=== PATIENT | male | born 1990 | race Caucasian/White ===

== ENCOUNTER 2020-11-10 12:08 | Emergency (ER) | payer OTHER ==
[2020-11-10] MEDS ORDERED: TORAdol 30 mg Injection IM ONE (12:21)
[2020-11-10] MEDS ORDERED: BENADRYL 50 MG/ML IV ONE (12:22)
[2020-11-10] MEDS ORDERED: TORAdol 30 mg Injection ONE (12:27)
[2020-11-10] MEDS ORDERED: BENADRYL 50 MG/ML ONE (12:27)
[2020-11-10] MEDS ORDERED: TORAdol 30 mg Injection IV ONE (12:29)
[2020-11-10 12:33] LABS: Absolute Neutrophil Ct (ANC) 7.75 (1.4-6.9); BASOPHIL % 0.2 % (0.0-0.4); Basophil (Absolute #) 0.02 (0-0.4); Eosinophil % 0.2 % (0.00-5.0); Eosinophil (Absolute #) 0.02 (0-0.5); Hematocrit 44.7 % (42-50); Hemoglobin 15.3 gm/dl (12.5-18.0); Lymphocyte (Absolute #) 1.33 (1.0-4.6); Lymphocytes % 13.2 % (24.0-44.0); Mean Cell Volume 83.7 fl (78-100); Mean Corpuscular Hemoglobin 28.7 pg (26-32); Mean Corpuscular Hgb Concent. 34.2 g/dl (32-36); Mean Platelet Volume 10.2 fl (7.5-11.0); Monocyte (Absolute #) 0.97 (0.0-1.3); Monocytes % 9.6 % (0.0-12.0); Neutrophil % 76.8 % (36.0-66.0); Platelet Count 214 K/mm3 (150-450); Red Blood Count 5.34 M/mm3 (4.1-5.6); Red Cell Distribution Width 11.9 % (11.5-14.0); White Blood Count 10.1 K/mm3 (4.0-10.5)
[2020-11-10 12:52] LABS: ALBUMIN 4.8 g/dL (3.5-5.0); ALKALINE PHOSPHATASE 111 U/L (38-126); ANION GAP 20.6 MEQ/L (5-15); BLOOD UREA NITROGEN 10 mg/dL (9-20); CHLORIDE 101 mmol/L (98-107); Calcium 9.5 mg/dL (8.4-10.2); Carbon Dioxide 20 mmol/L (22-30); Creatinine 1 0.89 mg/dL (0.66-1.25); EST GLOMERULAR FILTRATION RATE > 60.0 ML/MIN; Glucose 123 mg/dL (74-106); Potassium 3.7 mmol/L (3.5-5.1); SGOT/AST 16 U/L (17-59); SGPT/ALT 18 U/L (0-50); SODIUM 137 mmol/L (137-145); Total Protein 7.5 g/dL (6.3-8.2)
--- NOTE | 2020-11-10 13:06 | XRAY ---
Indication: Neck and upper back pain. No known injury. Comparison: None AP/lateral thoracic spine demonstrates 12 rib-bearing segments with vertebral body heights/disc spaces maintained. Minimal minimal dextroscoliosis centered at T6. No other bony, articular, or soft tissue abnormalities.
--- NOTE | 2020-11-10 13:09 | XRAY ---
Indication: Neck and upper back pain. No known injury. Comparison: None 4 view cervical spine demonstrate normal alignment with vertebral body heights/disc spaces maintained. Incidental bilateral C7 ribs. No bony, articular, or soft tissue abnormalities.
[2020-11-10 13:16] VITALS: BP 145/80
--- NOTE | 2020-11-10 13:25 | ERPHSYRPT ---
- History of Present Illness Time Seen by Provider: 11/10/20 12:15 Source: patient Exam Limitations: no limitations Patient Subjective Stated Complaint: upper back pain Triage Nursing Assessment: pt to ED c/o upper back pain and neck pain 10/10 ons et today. pt had cyst removed on buttock yesterday by Dr. Blake, did not have this pain yesterday. pt back to ED by WC. assist x 1 to bed. pt appears anxious and does have hx anxiety. no pain at post op site reported. Physician History: Patient is a 29-year-old male presents to our ED with complaints of upper back and cervical spine pain. Patient states symptoms started today. Pain rated 10 out of 10. No trauma no fever. Patient states he had a pilonidal cyst res ection yesterday. Patient was in the prone position during that time. Patient surgeon was Dr. Blake. Patient took a dose of [place] and Zofran prior to arrival. Patient appears very anxious. He states he feels anxious. He does have a history of anxiety. Symptoms are mild to moderate in intensity. No specific worsening improving factors. Patient voices no other complaints or concerns at this time. Timing/Duration: today Severity: moderate Modifying Factors: Improves With: nothing Associated Symptoms: denies symptoms, No shortness of breath, No heartburn, No diaphoresis, No cough, No chills, No chest pain, No fever, No headaches, No loss of appetite, No malaise, No syncope, No seizure, No weakness Allergies/Adverse Reactions: No Known Drug Allergies Allergy (Unverified 11/10/20 12:22) Home Medications: Cholecalciferol (Vitamin D3) [Vitamin D] 400 unit PO DAILY 11/10/20 [History] Famotidine 20 mg PO DAILY 11/10/20 [History] Hx Tetanus, Diphtheria Vaccination/Date Given: Yes Hx Influenza Vaccination/Date Given: Yes Hx Pneumococcal Vaccination/Date Given: No Immunizations Up to Date: Yes Travel Risk - International Travel Have you traveled outside of the country in past 3 weeks: No - Coronavirus Screening Are you exhibiting any of the following symptoms?: No Close contact with a COVID-19 positive Pt in past 14-21 Days: No - Review of Systems Constitutional: No Symptoms, No Fever, No Chills Eyes: No Symptoms Ears, Nose, & Throat: No Symptoms Respiratory: No Symptoms, No Cough, No Dyspnea Cardiac: No Symptoms, No Chest Pain, No Edema, No Syncope Abdominal/Gastrointestinal: No Symptoms, No Abdominal Pain, No Nausea, No Vomiting, No Diarrhea Genitourinary Symptoms: No Symptoms, No Dysuria Musculoskeletal: No Symptoms, No Back Pain, No Neck Pain Skin: No Symptoms, No Rash Neurological: No Symptoms, No Dizziness, No Focal Weakness, No Sensory Changes Psychological: No Symptoms Endocrine: No Symptoms Hematologic/Lymphatic: No Symptoms Immunological/Allergic: No Symptoms All Other Systems: Reviewed and Negative - Past Medical History Pertinent Past Medical History: Yes Respiratory History: Asthma GI Medical History: GERD Psycho-Social History: Anxiety, Depression - Past Surgical History Past Surgical History: Yes Other Surgical History: cyst on buttock - 2020. tumor removed from shoulder - 2003 - Social History Smoking Status: Never smoker Exposure to second hand smoke: No Drug Use: none Patient Lives Alone: No - Nursing Vital Signs Nursing Vital Signs: Initial Vital Signs Temperature 99.1 F 11/10/20 12:12 Pulse Rate 95 H 11/10/20 12:12 Respiratory Rate 22 11/10/20 12:12 Blood Pressure 139/98 11/10/20 12:12 O2 Sat by Pulse Oximetry 100 11/10/20 12:12 Pain Scale Pain Intensity [] 10 Pain Intensity 6 - Physical Exam General Appearance: no apparent distress, alert, anxiety, other (Patient appears very anxious. Patient admits to history of anxiety.) Eye Exam: PERRL/EOMI, eyes nml inspection Ears, Nose, Throat Exam: normal ENT inspection, TMs normal, pharynx normal, moist mucous membranes Neck Exam: normal inspection, non-tender, supple, full range of motion Respiratory Exam: normal breath sounds, lungs clear, No respiratory distress Cardiovascular Exam: regular rate/rhythm, normal heart sounds, normal peripheral pulses Gastrointestinal/Abdomen Exam: soft, normal bowel sounds, No tenderness, No mass Back Exam: normal inspection, normal range of motion, No CVA tenderness, No vertebral tenderness Extremity Exam: normal inspection, normal range of motion, pelvis stable Neurologic Exam: alert, oriented x 3, cooperative, normal mood/affect, nml cerebellar function, nml station & gait, sensation nml, No motor deficits Skin Exam: normal color, warm, dry, No rash Lymphatic Exam: No adenopathy SpO2 Interpretation: normal SpO2: 99 O2 Delivery: Room Air - Course Nursing assessment & vital signs reviewed: Yes - Radiology Exams C-Spine X-ray Interpretation: Teleradiologist Report (Normal alignment with vertebral body height/disc spaces maintained. Incidental bilateral C7 ribs. No bony articular or soft tissue abnormalities.) T-Spine X-ray Interpretation: Teleradiologist Report (Thoracic spine x-ray demonstrates 12 rib bearing segments with vertebral body heights/disc spaces maintained. Minimal dextroscoliosis centered at T6. No other bony articular or soft tissue abnormalities.) Ordered Tests: Active Orders 24 hr Category Date Time Status IV Insertion STAT Care 11/10/20 12:29 Active CERVICAL SPINE (2 OR 3 VIEW) Stat Exams 11/10/20 12:17 Completed THORACIC SPINE (AP,LAT,SWIMM) Stat Exams 11/10/20 12:17 Completed CBC W DIFF Stat Lab 11/10/20 12:31 Completed CMP Stat Lab 11/10/20 12:31 Completed D-DIMER QUANTITATIVE Stat Lab 11/10/20 12:31 Completed TROPONIN Q3H Lab 11/10/20 12:31 Completed TROPONIN Q3H Lab 11/10/20 15:30 Ordered TROPONIN Q3H Lab 11/10/20 18:30 Ordered TROPONIN Q3H Lab 11/10/20 21:30 Ordered TROPONIN Q3H Lab 11/11/20 00:30 Ordered UA W/RFX UR CULTURE Stat Lab 11/10/20 12:20 Ordered Medication Summary Discontinued Medications Generic Name Dose Route Start Last Admin Trade Name Freq PRN Reason Stop Dose Admin Diphenhydramine HCl 25 mg 11/10/20 12:22 11/10/20 12:30 Benadryl 50 Mg/Ml IV 11/10/20 12:23 25 mg STAT ONE Administration Diphenhydramine HCl Confirm 11/10/20 12:27 Benadryl 50 Mg/Ml Administered 11/10/20 12:28 Dose 50 mg .ROUTE .STK-MED ONE Ketorolac Tromethamine 30 mg 11/10/20 12:21 11/10/20 12:28 Toradol 30 Mg Injection IM 11/10/20 12:22 Not Given STAT ONE Ketorolac Tromethamine Confirm 11/10/20 12:27 Toradol 30 Mg Injection Administered 11/10/20 12:28 Dose 30 mg .ROUTE .STK-MED ONE Ketorolac Tromethamine 30 mg 11/10/20 12:29 11/10/20 12:29 Toradol 30 Mg Injection IV 11/10/20 12:30 30 mg STAT ONE Administration Lab/Rad Data: Laboratory Result Diagrams 11/10/20 12:31 11/10/20 12:31 Laboratory Results 11/10/20 11/10/20 11/10/20 Range/Units 12:31 12: 12:31 WBC (4.0-10.5) K/mm3 RBC (4.1-5.6) M/mm3 Hgb (12.5-18.0) gm/dl Hct (42-50) % MCV (78-100) fl MCH (26-32) pg MCHC (32-36) g/dl RDW (11.5-14.0) % Plt Count (150-450) K/mm3 MPV (7.5-11.0) fl Gran % (36.0-66.0) % Eos # (Auto) (0-0.5) Absolute Lymphs (auto) (1.0-4.6) Absolute Monos (auto) (0.0-1.3) Lymphocytes % (24.0-44.0) % Monocytes % (0.0-12.0) % Eosinophils % (0.00-5.0) % Basophils % (0.0-0.4) % Absolute Granulocytes (1.4-6.9) Basophils # (0-0.4) D-Dimer 243 (215-500) ng/mL Sodium 137 (137-145) mmol/L Potassium 3.7 (3.5-5.1) mmol/L Chloride 101 (98-107) mmol/L Carbon Dioxide 20 L (22-30) mmol/L Anion Gap 20.6 H (5-15) MEQ/L BUN 10 (9-20) mg/dL Creatinine 0.89 (0.66-1.25) mg/dL Estimated GFR > 60.0 ML/MIN Glucose 123 H (74-106) mg/dL Calcium 9.5 (8.4-10.2) mg/dL Total Bilirubin 1.30 (0.2-1.3) mg/dL AST 16 L (17-59) U/L ALT 18 (0-50) U/L Alkaline Phosphatase 111 (38-126) U/L Troponin I < 0.012 (0.000-0.034) ng/mL Serum Total Protein 7.5 (6.3-8.2) g/dL Albumin 4.8 (3.5-5.0) g/dL 11/10/20 Range/Units 12:31 WBC 10.1 (4.0-10.5) K/mm3 RBC 5.34 (4.1-5.6) M/mm3 Hgb 15.3 (12.5-18.0) gm/dl Hct 44.7 (42-50) % MCV 83.7 (78-100) fl MCH 28.7 (26-32) pg MCHC 34.2 (32-36) g/dl RDW 11.9 (11.5-14.0) % Plt Count 214 (150-450) K/mm3 MPV 10.2 (7.5-11.0) fl Gran % 76.8 H (36.0-66.0) % Eos # (Auto) 0.02 (0-0.5) Absolute Lymphs (auto) 1.33 (1.0-4.6) Absolute Monos (auto) 0.97 (0.0-1.3) Lymphocytes % 13.2 L (24.0-44.0) % Monocytes % 9.6 (0.0-12.0) % Eosinophils % 0.2 (0.00-5.0) % Basophils % 0.2 (0.0-0.4) % Absolute Granulocytes 7.75 H (1.4-6.9) Basophils # 0.02 (0-0.4) D-Dimer (215-500) ng/mL Sodium (137-145) mmol/L Potassium (3.5-5.1) mmol/L Chloride (98-107) mmol/L Carbon Dioxide (22-30) mmol/L Anion Gap (5-15) MEQ/L BUN (9-20) mg/dL Creatinine (0.66-1.25) mg/dL Estimated GFR ML/MIN Glucose (74-106) mg/dL Calcium (8.4-10.2) mg/dL Total Bilirubin (0.2-1.3) mg/dL AST (17-59) U/L ALT (0-50) U/L Alkaline Phosphatase (38-126) U/L Troponin I (0.000-0.034) ng/mL Serum Total Protein (6.3-8.2) g/dL Albumin (3.5-5.0) g/dL - Progress Progress: improved Progress Note: 11/10/20 13:40 Patient reassessed. He feels well. Pain significantly improved. D-dimer negative. Troponin negative. X-ray of cervical and thoracic spine negative. Vitals within normal limits. Patient states he is ready for discharge. Patient was sleeping comfortably in the room prior to my reevaluation. He voices no other complaints or concerns at this time. Will discharge at this time. Patient agrees to follow-up with his primary care doctor within 48 hours for reevaluation. It is likely that patient's pain is stemming from prolonged prone posture during his pilonidal cyst surgery yesterday. Counseled pt/family regarding: lab results, diagnosis, need for follow-up, rad results - Departure Departure Disposition: Home Clinical Impression: Levoscoliosis, Thoracic spine pain, Cervical spine pain Condition: Stable Critical Care Time: No Referrals: Provider,Unknown [Primary Care Provider] - Additional Instructions: Discharge/Care Plan VERONICA CHAPMAN was seen on 11/10/20 in the Emergency Room. The patient was counseled regarding Diagnosis,Lab results, Imaging studies, need for follow up and when to return to the Emergency Room. Prescriptions given: Discharge Note I have spoken with the patient and/or caregivers. I have explained the patient's condition, diagnosis and treatment plan based on the information available to me at this time. I have answered the patient's and/or caregiver's questions and addressed any concerns. The patient and/or caregivers have as good understanding of the patient's diagnosis, condition and treatment plan as can be expected at this point. The vital signs have been stable. The patient's condition is stable and appropriate for discharge from the emergency department. The patient will pursue further outpatient evaluation with the primary care physician or other designated or consulting physician as outlined in the discharge instructions. The patient and/or caregivers are agreeable to this plan of care and follow-up instructions have been explained in detail. The patient and/or caregivers have received these instruction. The patient/and or caregivers are aware that any significant change in condition or worsening of symptoms should prompt an immediate return to this or the closest emergency department or call 911.
[2020-11-10 13:55] VITALS: PULSE 80; O2SAT 98
== END 2020-11-10 13:50 | disposition home or self-care (01) ==
LOC: ED 12:08
DX: M41.86 Other forms of scoliosis, lumbar region (principal); M54.6 Pain in thoracic spine; M54.2 Cervicalgia; M54.89 Other dorsalgia; Z79.899 Other long term (current) drug therapy
CPT/HCPCS: 36000; 36415; 72040; 72072; 80053; 84484; 85025; 85379; 96374; 96375; 99284; J1200; J1885